=== PATIENT | male | born 1950 | race Caucasian/White ===

== ENCOUNTER 2019-05-11 21:08 | Observation (INO) | payer MEDICARE ==
[~2019-05-11] VITALS: Ht 182.9 cm; Wt 159.0 kg
[~2019-05-11 21:08] MED LIST: ASPIRIN LOW DOS81 M1 PO; ASPIRIN325 MG OR; AUGMENTIN875TAB PO; AVELOX400 MG OR; BIOTUSSIN PO; CELEXA10 MG PO; CELEXA20 M1 PO; CLOPIDOGREL75 MG PO; DIABETA2.5 MG OR; DILAUDID2 MG OR; DOXYCYCL HYC100 MG PO; FLORASTOR250 M1 PO; FLUOXETINE20 MG OR; GLYBURIDE2.5 M1 PO; GLYBURIDE5 M1 PO; ISOSORBIDE MONO60 MG PO; LASIX 20 MG20 MG/TAB PO; LEVEMIR FL100 UNIT/M SC; LIPITOR10 M1 PO; LISINOP/HCTZ1 TA2 OR; LISINOPRIL5 MG OR; LO-DOSE ASA81 MG OR; LOSARTAN POT50 MG PO; LYRICA75 MG OR; MEGARED PO; METANX OR; METFORMIN500 M2 PO; METFORMIN500 MG OR; METFORMIN850 MG PO; METOPROLOL SUC100 MG PO; MICRONASE5 MG PO; MULTI FOR HIM PO; NAPROSYN500 MG OR; NITROSTAT0.4 MG SL; NOVOLOG FLEXPEN SC; PREDNISONE10 MG PO; PROMETHAZINE25 M1 RE; TAMSULOSIN HCL0.4 MG PO; TRAMADOL HCL50 MG OR; TRULICITY0.75 MG/0. IM
--- NOTE | 2019-05-11 21:08 | NUR ---
PT TO ROOM 3 BY EMS FOR COUGH AND SORE THROAT. GRANDCHILD RECENTLY DX WITH STREP.
--- NOTE | 2019-05-11 22:00 | NUR ---
PT. MOVED TO ROOM 10, RECEIVED REPORT.
[2019-05-11 22:08] LABS: HEMATOCRIT 27.9 % (39.0-50.0); IMMATURE GRANULOCYTES 0.5 % (0.0-5.0); MEAN CORPUSCULAR HGB 20.3 pG CALC (26.0-32.0); MEAN CORPUSCULAR HGB CONC 28.7 g/L CALC (32.0-36.0); NEUT# 11.74 thou/uL (1.82-7.42); RED BLOOD COUNT 3.95 mill/uL (4.70-6.10); RED CELL DISTRI WIDTH 18.6 % (11.5-15.5)
[2019-05-11 22:09] LABS: URINE BILIRUBIN - DIPSTICK NEGATIVE (NEGATIVE); URINE BLOOD DIPSTICK TRACE-INTACT (NEGATIVE); URINE COLOR YELLOW; URINE GLUCOSE - DIPSTICK >=1000 mg/dL (NEGATIVE); URINE KETONE NEGATIVE (NEGATIVE); URINE LEUK ESTERASE NEGATIVE (NEGATIVE); URINE NITRITE - DIPSTICK NEGATIVE (Negative); URINE PH 6.5 (4.5-8.0); URINE PROTEIN - DIPSTICK NEGATIVE (NEG-TRACE); URINE SPECIFIC GRAVITY 1.015; URINE UROBILINOGEN - DIPSTICK 0.2 E.U./dL (0.2)
[2019-05-11 22:10] LABS: MEAN CELL VOLUME 70.6 fL CALC (80.0-100.0)
[2019-05-11 22:26] LABS: ALBUMIN 3.7 g/dL (3.2-5.0); ALKALINE PHOSPHATASE 144 u/l (38-126); ANION GAP 14 (6-22 (CALC)); BILIRUBIN, TOTAL 0.8 mg/dL (0.0-1.4); BUN 14 mg/dL (8-23); BUN/CREATININE RATIO 16 (12-20 (CALC)); CHLORIDE 97 mmol/l (95-108); CREATININE 0.9 mg/dL (0.7-1.3); GFR > 60 ML/MIN (>=60 (CALC)); GFR FOR AFR.AMER. > 60 ML/MIN (>=60 (CALC)); POTASSIUM 4.5 mmol/l (3.5-5.1); SGOT/AST 18 u/l (19-48); SODIUM 132 mmol/l (137-146)
[2019-05-11 22:27] LABS: CARBON DIOXIDE 26 mmol/l (22-30)
--- NOTE | 2019-05-11 23:09 | NUR ---
IN ROOM TO DISCUSS CLINICAL FINDINGS WITH PT. VERBALIZED UNDERSTANDING.
--- NOTE | 2019-05-11 23:50 | NUR ---
IV ABT. STARTED PER MD ORDER.
[2019-05-12] VITALS (11 sets, daily range): BP systolic 115–167; BP diastolic 47–83
[2019-05-12] MEDS ORDERED: LOSARTAN POTASS50 MG PO (00:18)
[2019-05-12] MEDS ORDERED: METFORMIN500 MG PO (00:20)
[2019-05-12] MEDS ORDERED: POTASSIUM GLUC PO (00:23)
[2019-05-12] MEDS ORDERED: PLAVIX75 MG PO (00:24)
--- NOTE | 2019-05-12 00:24 | NUR ---
PT. MADE AWARE OF ADMISSION, VERBALIZED UNDERSTANDING.
[2019-05-12] MEDS ORDERED: [UNRECOGNIZED DRUG - OTHER] PO (00:25)
[2019-05-12] MEDS ORDERED: ELIQUIS5 MG PO (00:26)
[2019-05-12] MEDS ORDERED: CINNAMON500 MG PO (00:27)
[2019-05-12] MEDS ORDERED: ATORVASTATIN CA80 MG PO (00:28)
[2019-05-12] MEDS ORDERED: MAGNESIUM500 M3 PO (00:29)
--- NOTE | 2019-05-12 01:00 | NUR ---
MADE AWARE OF PT. BLOOD GLUCOSE, NO NEW ORDERS RECEIVED.
[2019-05-12 01:06] LABS: PROTHROMBIN TIME 10.5 SECONDS (9.0-12.5)
--- NOTE | 2019-05-12 01:14 | NUR ---
Admission Note Report Given to: ULI JERONIMO Transported by: Wheelchair X Stretcher Transported with: X Nurse Transporter X Patent IV O2 X Television Maintenance Worker
--- NOTE | 2019-05-12 01:24 | NUR ---
PT. TO MS FLOOR VIA W/C NO C/O.
--- NOTE | 2019-05-12 01:35 | NUR ---
PT. ARRIVED TO THE FLOOR WITH ER NURSE, CATHY. ESPARZA IN OBTAINING VS. RT NOTIFIED OF NEED FOR EKG.
--- NOTE | 2019-05-12 01:46 | NUR ---
ADMISSION ASSESSMENT COMPLETED. IV SITE PATENT AND BOLUS STARTED PER ORDER. PT. IS ORIENTED TO CALL LIGHT, ROOM, AND POC; VERBALIZES UNDERSTANDING. REMAINS AT BEDSIDE TO STAY THE NIGHT. PT. DENIES NEEDS/PAIN. TELEMETRY IN PLACE. BS 313, PER PT. HE CAN NOT TAKE ANY INSULIN HE IS VERY SENSITIVE TO IT. DECLINES TEDS AND SOCKS TO BE APPLIED. PT. INFORMED OF NEED FOR BM SPECIMEN AND TO VOID AT ALL TIMES IN URINAL; VERBALIZES UNDERSTANDING. CALL LIGHT IS IN REACH.
--- NOTE | 2019-05-12 02:00 | NUR ---
SPOKE WITH KIERAN FLYNN AND NOTIFIED HIM OF PT'S BS BEING 313 AND THAT PT. REPORTS HE IS VERY SENSITIVE TO INSULIN AND WILL BOTTOM OUT. PER WE WILL LEAVE BS IS FOR NOW. UPDATED PT.
--- NOTE | 2019-05-12 05:39 | NUR ---
PT. SNORING WITH SLEEPING AT BEDSIDE. NO DISTRESS NOTED; URINAL EMPTIED. CALL LIGHT IS IN REACH.
[2019-05-12 06:40] LABS: HEMATOCRIT 26.3 % (39.0-50.0); MEAN CELL VOLUME 72.1 fL CALC (80.0-100.0); MEAN CORPUSCULAR HGB 20.3 pG CALC (26.0-32.0); MEAN CORPUSCULAR HGB CONC 28.1 g/L CALC (32.0-36.0); RED BLOOD COUNT 3.65 mill/uL (4.70-6.10)
[2019-05-12 06:45] LABS: HEMOGLOBIN 7.4 g/dl (14.0-18.0)
--- NOTE | 2019-05-12 08:00 | NUR ---
ASSESSMENT DONE . TELE IN PLACE. PT IS A&O X3. PT DENIES PAIN AT THIS TIME. IVF INFUSNING WELL. IN ROOM. PT DENIES NEEDS AT THIS TIME. CALL LIGHT IN REACH.
--- NOTE | 2019-05-12 11:22 | NUR ---
EXPLAIN TO PT S/S OF BLOOD TRANSFUSION. PT VERBALIZED UNDERSTANDING. BLOOD TRANSFUSION STARTED. PT IS RESTING IN BED. IN ROOM. PT DENIES NEEDS AT THIS TIME. CALL LIGHT IN REACH.
--- NOTE | 2019-05-12 15:23 | NUR ---
PT IS RESTING IN BED WITH NO S/S OF DISTRESS NOTED. PT DENIES NEEDS AT THIS TIME. CALL LIGHT IN REACH.
[2019-05-12] MEDS ORDERED: COQ-1030 M1 PO (15:33)
[2019-05-12] MEDS ORDERED: OCUVITE ADULT FORMUL (15:38)
--- NOTE | 2019-05-12 19:22 | NUR ---
REPORT FROM MARJORIE JERONIMO. PT SITTING UP IN BED. ALERT AND ORIENTED. NO DISTRESS NOTED. PT DENIES ANY PAIN OR DISCOMFORT. PT C/O COUGH PRODUCING CLEAR THIN MUCUS. IV SITE APPEARS HEALTHY. IV FLUIDS INFUSING WITHOUT DIFFICULTY. DISCUSSED POC. PT VERBALIZED UNDERSTANDING. CALL LIGHT WITHIN REACH. WILL CONTINUE TO MONITOR.
--- NOTE | 2019-05-13 00:02 | NUR ---
PT HAD INCONTINENT BOWEL EPISODE. COMPLETE LINEN CHANGE. PT ASSISTED WITH PARTIAL BED BATH. PT DENIES ANY CURRENT WANTS OR NEEDS. REMAINS IN ROOM. CALL LIGHT WITHIN REACH. WILL CONTINUE TO MONITOR.
[2019-05-13 04:24] VITALS: BP 152/82
[2019-05-13 05:15] LABS: HEMATOCRIT 29.8 % (39.0-50.0); HEMOGLOBIN 8.5 g/dl (14.0-18.0); MEAN CORPUSCULAR HGB 20.8 pG CALC (26.0-32.0); MEAN CORPUSCULAR HGB CONC 28.5 g/L CALC (32.0-36.0); RED BLOOD COUNT 4.08 mill/uL (4.70-6.10); RED CELL DISTRI WIDTH 19.3 % (11.5-15.5)
[2019-05-13 05:29] LABS: ANION GAP 13 (6-22 (CALC)); BUN 13 mg/dL (8-23); BUN/CREATININE RATIO 15 (12-20 (CALC)); CARBON DIOXIDE 26 mmol/l (22-30); CHLORIDE 104 mmol/l (95-108); CREATININE 0.8 mg/dL (0.7-1.3); GFR > 60 ML/MIN (>=60 (CALC)); GFR FOR AFR.AMER. > 60 ML/MIN (>=60 (CALC)); POTASSIUM 4.9 mmol/l (3.5-5.1); SODIUM 138 mmol/l (137-146)
[2019-05-13 07:46] VITALS: BP 173/73
--- NOTE | 2019-05-13 08:00 | NUR ---
REPORT WAS RECEIVED FROM DARSHANA. ASSESSMENT DONE. TELE IN PLACE. PT IS A&O X3. PT DENIES PAIN. PT DENIES NEEDS AT THIS TIME. IVF INFUSING WELL. IN ROOM. CALL LIGHT IN REACH.
[2019-05-13 09:10] VITALS: BP 156/59
[2019-05-13] MEDS ORDERED: AMOX/K CLAV875 M1 PO (09:54)
[2019-05-13] MEDS ORDERED: FERROUS SULF325 M2 PO (09:54)
[2019-05-13] MEDS ORDERED: ROBITUSSIN AC10 ML PO (09:55)
[2019-05-13 10:50] VITALS: BP 151/76
--- NOTE | 2019-05-13 11:46 | NUR ---
Discharge instructions given. Patient verbalizes understanding of same. Discharged in stable condition via Wheelchair to Home with spouse. All belongings sent with pt.
== END 2019-05-13 11:45 | disposition home or self-care (01) ==
LOC: ED 21:08 → ED-I 23:40 → ED 23:54 → MS2 23:55
PROVIDERS: Emergency Medicine; ADMIT Internal Medicine; ATTEND Internal Medicine
PROC: 30233N1 Transfusion of Nonautologous Red Blood Cells into Peripheral Vein, Percutaneous Approach (ICD-10-PCS; principal; 2019-05-12)
DX: D50.9 Iron deficiency anemia, unspecified (principal); E11.65 Type 2 diabetes mellitus with hyperglycemia; J40 Bronchitis, not specified as acute or chronic; I10 Essential (primary) hypertension; E11.40 Type 2 diabetes mellitus with diabetic neuropathy, unspecified; E78.5 Hyperlipidemia, unspecified; I25.10 Atherosclerotic heart disease of native coronary artery without angina pectoris; I51.7 Cardiomegaly; Z79.84 Long term (current) use of oral hypoglycemic drugs; Z95.5 Presence of coronary angioplasty implant and graft; Z79.02 Long term (current) use of antithrombotics/antiplatelets; Z79.82 Long term (current) use of aspirin; Z87.01 Personal history of pneumonia (recurrent)
CPT/HCPCS: J1756; P9016

== ENCOUNTER 2019-08-21 21:51 | Observation (INO) | payer MEDICARE ==
[~2019-08-21] VITALS: Ht 182.9 cm; Wt 155.4 kg
[~2019-08-21 21:51] MED LIST changes: +AMOX/K CLAV875 M1 PO; +ATORVASTATIN CA80 MG PO; +CINNAMON500 MG PO; +COQ-1030 M1 PO; +COZAAR50 MG PO; +ELIQUIS5 MG PO; +FERROUS SULF325 M2 PO; +MAGNESIUM500 M3 PO; +METFORMIN500 MG PO; +OCUVITE ADULT FORMUL; +PLAVIX75 MG PO; +POTASSIUM GLUC PO; +ROBITUSSIN AC10 ML PO; +[UNRECOGNIZED DRUG - OTHER] PO
--- NOTE | 2019-08-21 22:13 | NUR ---
PT. TO ROOM 10 VIA EMS WITH C/O FEVER AND WEAKNESS X 2 DAYS. PT. TEMP NOW 101.5. O2 SAT ON RA 89%. AWARE.
[2019-08-21 22:36] LABS: IMMATURE GRANULOCYTES 0.3 % (0.0-5.0); NEUT# 8.5 thou/uL (1.82-7.42); RED BLOOD COUNT 4.92 mill/uL (4.70-6.10); RED CELL DISTRI WIDTH 18.2 % (11.5-15.5)
[2019-08-21 22:40] LABS: HEMATOCRIT 39.7 % (39.0-50.0); HEMOGLOBIN 12.3 g/dl (14.0-18.0); MEAN CELL VOLUME 80.7 fL CALC (80.0-100.0)
[2019-08-21 22:57] LABS: ALBUMIN 4.1 g/dL (3.2-5.0); ALKALINE PHOSPHATASE 166 u/l (38-126); AMYLASE 41 u/l (30-110); ANION GAP 17 (6-22 (CALC)); BILIRUBIN, TOTAL 0.5 mg/dL (0.0-1.4); BUN 14 mg/dL (8-23); BUN/CREATININE RATIO 18 (12-20 (CALC)); CARBON DIOXIDE 26 mmol/l (22-30); CHLORIDE 97 mmol/l (95-108); CREATININE 0.8 mg/dL (0.7-1.3); GFR > 60 ML/MIN (>=60 (CALC)); GFR FOR AFR.AMER. > 60 ML/MIN (>=60 (CALC)); LIPASE 201 u/l (23-300); POTASSIUM 4.8 mmol/l (3.5-5.1); SGOT/AST 25 u/l (19-48); SODIUM 134 mmol/l (137-146); TOTAL PROTEIN 7.7 g/dL (6.3-8.2)
--- NOTE | 2019-08-21 23:18 | NUR ---
DR NOTIFIED OF ELEVATED LACTIC ACID LEVEL OF 2.6.
[2019-08-21 23:52] LABS: URINE BILIRUBIN - DIPSTICK NEGATIVE (NEGATIVE); URINE BLOOD DIPSTICK SMALL (NEGATIVE); URINE COLOR YELLOW; URINE GLUCOSE - DIPSTICK >=1000 mg/dL (NEGATIVE); URINE KETONE NEGATIVE (NEGATIVE); URINE NITRITE - DIPSTICK NEGATIVE (Negative); URINE PROTEIN - DIPSTICK TRACE mg/dL (NEG-TRACE); URINE SPECIFIC GRAVITY 1.015; URINE UROBILINOGEN - DIPSTICK 0.2 E.U./dL (0.2)
[2019-08-21 23:56] LABS: URINE LEUK ESTERASE NEGATIVE (NEGATIVE)
--- NOTE | 2019-08-21 23:56 | NUR ---
PO TAMIFLU GIVEN PER MD ORDER.
[2019-08-21 23:58] LABS: URINE EPITHELIAL CELLS FEW EPI/hpf (0-FEW)
[2019-08-21 23:59] LABS: URINE BACTERIA FEW hpf
--- NOTE | 2019-08-22 00:30 | NUR ---
RADIOLOGY CALL AND STATED PT. VOMITED A SMALL AMT. OF CLEAR LIQUID.
--- NOTE | 2019-08-22 01:45 | NUR ---
MD ORDERED INSULIN, PT. REFUSED STATING," IT ONLY MAKES MY BG GO HIGHER, MD AWARE. PT ACCU CHECK 270.
--- NOTE | 2019-08-22 02:51 | NUR ---
Admission Note Report Given to: ADRIAN JERONIMO Transported by: Wheelchair X Stretcher Transported with: X Nurse Transporter X Patent IV X O2 X Hops Farmworker
--- NOTE | 2019-08-22 03:00 | NUR ---
PT. TAKEN TO ICU VIA STRETCHER, AT SIDE, NO C/O.
--- NOTE | 2019-08-22 03:05 | NUR ---
PT ARRIVED TO UNIT VIA STRETCHER WITH ER STAFF; ALERT AND ORIENTED. AMBULATED TO BED WITH WEAK UNSTEADY GAIT. DENIES PAIN; DOES HAVE CHRONIC LOWER BACK PAIN. RESPIRATIONS EVEN AND UNLABORED ON OXYGEN 2L VIA NC. ASSESSMENT COMPLETED ON ADMIT; LUNGS ARE CLEAR; HR REGULAR; 2+ PITTING EDEMA TO BLE. FLUIDS INITIATED AT THIS TIME; EMS IV TO RW APPEARS HEALTHY AND FLUSHES. NOW AT BEDSIDE. ORIENTED TO ROOM AND CALL LIGHT SYSTEM. PLAN OF CARE DISCUSSED. PT ENCOURAGED TO VERBALIZE CONCERNS. STATES UNDERSTANDING. SAFETY MEASURES IN PLACE AND PT PLACED ON DROPLET PRECAUTIONS. CALL LIGHT WITHIN REACH.
[2019-08-22 04:00] VITALS: BP 158/66
--- NOTE | 2019-08-22 05:17 | NUR ---
RT AT BEDSIDE FOR BREATHING TREATMENT.
--- NOTE | 2019-08-22 06:05 | NUR ---
LAB AT BEDSIDE.
[2019-08-22 06:30] LABS: ALBUMIN 3.6 g/dL (3.2-5.0); ALKALINE PHOSPHATASE 137 u/l (38-126); ANION GAP 14 (6-22 (CALC)); BILIRUBIN, TOTAL 0.4 mg/dL (0.0-1.4); BUN 14 mg/dL (8-23); BUN/CREATININE RATIO 17 (12-20 (CALC)); CARBON DIOXIDE 26 mmol/l (22-30); CHLORIDE 100 mmol/l (95-108); CREATININE 0.8 mg/dL (0.7-1.3); GFR > 60 ML/MIN (>=60 (CALC)); GFR FOR AFR.AMER. > 60 ML/MIN (>=60 (CALC)); POTASSIUM 4.3 mmol/l (3.5-5.1); SGOT/AST 22 u/l (19-48); SODIUM 135 mmol/l (137-146)
--- NOTE | 2019-08-22 06:50 | NUR ---
REPORT RECVD FROM PHANI CAMPBELL AT START OF SHIFT.
[2019-08-22 08:00] VITALS: BP 153/56
--- NOTE | 2019-08-22 08:00 | NUR ---
@BEDSIDE EDUCATED ON PPT & SPREAD OF VIRUS. PT DENIES N/V/D, DENIES PAIN, DENIES SOB, DENIES COUGH.
[2019-08-22 08:25] LABS: HEMATOCRIT 37.4 % (39.0-50.0); HEMOGLOBIN 11.5 g/dl (14.0-18.0); IMMATURE GRANULOCYTES 0.4 % (0.0-5.0); MEAN CELL VOLUME 81.7 fL CALC (80.0-100.0); MEAN CORPUSCULAR HGB 25.1 pG CALC (26.0-32.0); MEAN CORPUSCULAR HGB CONC 30.7 g/L CALC (32.0-36.0); NEUT# 7.18 thou/uL (1.82-7.42); RED BLOOD COUNT 4.58 mill/uL (4.70-6.10); RED CELL DISTRI WIDTH 18.6 % (11.5-15.5)
--- NOTE | 2019-08-22 11:24 | NUR ---
PT AWAKE/ALERT & Ox4. STATES HE IS READY TO GO HOME. REFUSED GUEST TRAY FOR LUNCH.
[2019-08-22 12:00] VITALS: BP 147/55
[2019-08-22] MEDS ORDERED: TAM75CAP PO (12:14)
[2019-08-22] MEDS ORDERED: AMOXICILLIN500 M2 PO (12:15)
--- NOTE | 2019-08-22 12:32 | NUR ---
DR [place] @BEDSIDE WITH PT & , ASSESSING PT & DISCUSSING TEST RESULTS/POC.
--- NOTE | 2019-08-22 12:58 | NUR ---
PT & EDUCATED ON DC INSTRUCTIONS, HIGH CONTAGIOUS RATE, & RX x2. VERBALIZED UNDERSTANDING.
--- NOTE | 2019-08-22 13:10 | NUR ---
PT TAKEN OUT OF UNIT BY WC WITH & ALL BELONGINGS IN STABLE CONDITION. PT & THANKFUL OF CARE.
== END 2019-08-22 13:10 | disposition home or self-care (01) ==
LOC: ED 21:51 → ED-I 08-22 01:26 → ED 08-22 02:04 → ICU 08-22 02:05
PROVIDERS: Emergency Medicine; ADMIT Internal Medicine; ATTEND Internal Medicine
DX: J10.1 Influenza due to other identified influenza virus with other respiratory manifestations (principal); R09.02 Hypoxemia; E11.65 Type 2 diabetes mellitus with hyperglycemia; E11.40 Type 2 diabetes mellitus with diabetic neuropathy, unspecified; I10 Essential (primary) hypertension; I25.10 Atherosclerotic heart disease of native coronary artery without angina pectoris; E78.5 Hyperlipidemia, unspecified; I25.2 Old myocardial infarction; Z95.5 Presence of coronary angioplasty implant and graft; Z79.84 Long term (current) use of oral hypoglycemic drugs
CPT/HCPCS: G9019

== ENCOUNTER 2019-08-23 20:33 | Inpatient (IN) | payer MEDICARE ==
[~2019-08-23] VITALS: Ht 182.9 cm; Wt 162.0 kg
[~2019-08-23 20:33] MED LIST changes: +AMOXICILLIN500 M2 PO; +TAM75CAP PO
[2019-08-23 21:18] LABS: ALBUMIN 4.1 g/dL (3.2-5.0); ALKALINE PHOSPHATASE 156 u/l (38-126); ANION GAP 18 (6-22 (CALC)); BILIRUBIN, TOTAL 0.5 mg/dL (0.0-1.4); BUN 15 mg/dL (8-23); BUN/CREATININE RATIO 16 (12-20 (CALC)); CARBON DIOXIDE 24 mmol/l (22-30); CHLORIDE 98 mmol/l (95-108); GFR > 60 ML/MIN (>=60 (CALC)); GFR FOR AFR.AMER. > 60 ML/MIN (>=60 (CALC)); POTASSIUM 4.5 mmol/l (3.5-5.1); SGOT/AST 28 u/l (19-48); SODIUM 136 mmol/l (137-146); TOTAL PROTEIN 7.9 g/dL (6.3-8.2)
[2019-08-23 21:23] LABS: HEMATOCRIT 40.4 % (39.0-50.0); HEMOGLOBIN 12.2 g/dl (14.0-18.0); IMMATURE GRANULOCYTES 0.4 % (0.0-5.0); MEAN CELL VOLUME 82.8 fL CALC (80.0-100.0); MEAN CORPUSCULAR HGB CONC 30.2 g/L CALC (32.0-36.0); NEUT# 7.16 thou/uL (1.82-7.42); RED BLOOD COUNT 4.88 mill/uL (4.70-6.10); RED CELL DISTRI WIDTH 18.3 % (11.5-15.5)
[2019-08-23 23:15] VITALS: BP 177/75
[2019-08-23 23:30] VITALS: BP 130/75
[2019-08-23 23:45] VITALS: BP 162/72
[2019-08-23 23:50] LABS: URINE BILIRUBIN - DIPSTICK NEGATIVE (NEGATIVE); URINE BLOOD DIPSTICK SMALL (NEGATIVE); URINE COLOR YELLOW; URINE GLUCOSE - DIPSTICK >=1000 mg/dL (NEGATIVE); URINE KETONE NEGATIVE (NEGATIVE); URINE NITRITE - DIPSTICK NEGATIVE (Negative); URINE PH 5.5 (4.5-8.0); URINE PROTEIN - DIPSTICK TRACE mg/dL (NEG-TRACE); URINE UROBILINOGEN - DIPSTICK 0.2 E.U./dL (0.2)
[2019-08-23 23:52] LABS: URINE LEUK ESTERASE NEGATIVE (NEGATIVE)
[2019-08-23 23:56] LABS: URINE BACTERIA FEW hpf; URINE EPITHELIAL CELLS MODERATE EPI/hpf (0-FEW)
[2019-08-24] VITALS (18 sets, daily range): BP systolic 119–180; BP diastolic 58–93
[2019-08-24 06:59] LABS: ANION GAP 14 (6-22 (CALC)); BUN 14 mg/dL (8-23); BUN/CREATININE RATIO 17 (12-20 (CALC)); CARBON DIOXIDE 25 mmol/l (22-30); CHLORIDE 102 mmol/l (95-108); CREATININE 0.9 mg/dL (0.7-1.3); GFR > 60 ML/MIN (>=60 (CALC)); GFR FOR AFR.AMER. > 60 ML/MIN (>=60 (CALC)); POTASSIUM 4.3 mmol/l (3.5-5.1); SODIUM 136 mmol/l (137-146)
[2019-08-24 07:01] LABS: HEMATOCRIT 38.1 % (39.0-50.0); HEMOGLOBIN 11.5 g/dl (14.0-18.0); IMMATURE GRANULOCYTES 0.5 % (0.0-5.0); MEAN CELL VOLUME 83.2 fL CALC (80.0-100.0); MEAN CORPUSCULAR HGB 25.1 pG CALC (26.0-32.0); MEAN CORPUSCULAR HGB CONC 30.2 g/L CALC (32.0-36.0); NEUT# 6.91 thou/uL (1.82-7.42); RED BLOOD COUNT 4.58 mill/uL (4.70-6.10); RED CELL DISTRI WIDTH 18.6 % (11.5-15.5)
[2019-08-25] VITALS (10 sets, daily range): BP systolic 110–180; BP diastolic 63–93
[2019-08-25 05:35] LABS: HEMATOCRIT 35.5 % (39.0-50.0); HEMOGLOBIN 10.9 g/dl (14.0-18.0); MEAN CELL VOLUME 81.6 fL CALC (80.0-100.0); MEAN CORPUSCULAR HGB 25.1 pG CALC (26.0-32.0); MEAN CORPUSCULAR HGB CONC 30.7 g/L CALC (32.0-36.0); RED BLOOD COUNT 4.35 mill/uL (4.70-6.10); RED CELL DISTRI WIDTH 18.5 % (11.5-15.5)
[2019-08-25 05:58] LABS: ANION GAP 12 (6-22 (CALC)); BUN 13 mg/dL (8-23); BUN/CREATININE RATIO 15 (12-20 (CALC)); CARBON DIOXIDE 26 mmol/l (22-30); CHLORIDE 101 mmol/l (95-108); CREATININE 0.8 mg/dL (0.7-1.3); GFR > 60 ML/MIN (>=60 (CALC)); GFR FOR AFR.AMER. > 60 ML/MIN (>=60 (CALC)); POTASSIUM 4.3 mmol/l (3.5-5.1); SODIUM 135 mmol/l (137-146)
[2019-08-26] VITALS (8 sets, daily range): BP systolic 155–187; BP diastolic 64–92
[2019-08-26] MEDS ORDERED: LEVAQUIN750 MG PO (09:07)
== END 2019-08-26 10:50 | disposition home or self-care (01) | DRG 193 ==
LOC: ED 20:33 → ED-I 21:11 → ED 21:11 → ED-I 21:43 → ED 22:05 → ICU 22:06
PROVIDERS: ADMIT Internal Medicine; ATTEND Internal Medicine
DX: J11.00 Influenza due to unidentified influenza virus with unspecified type of pneumonia (principal); J96.01 Acute respiratory failure with hypoxia; G93.49 Other encephalopathy; I10 Essential (primary) hypertension; I25.10 Atherosclerotic heart disease of native coronary artery without angina pectoris; E78.5 Hyperlipidemia, unspecified; E11.40 Type 2 diabetes mellitus with diabetic neuropathy, unspecified; E11.65 Type 2 diabetes mellitus with hyperglycemia; I25.2 Old myocardial infarction; Z95.5 Presence of coronary angioplasty implant and graft; Z79.84 Long term (current) use of oral hypoglycemic drugs; J10.1 Influenza due to other identified influenza virus with other respiratory manifestations; R09.02 Hypoxemia
CPT/HCPCS: G9019; J3370